=== PATIENT | male | born 1955 | race Caucasian/White ===

== ENCOUNTER → 2024-01-30 16:01 | Outpatient (REF) | payer OTHER, SELFPAY ==
[2024-01-30 11:57] LABS: Hematocrit 31.6 % (39.0-52.0); Hemoglobin 10.2 g/dL (13.0-18.0); Mean Corp Hgb Conc. 32.3 g/dL (33.0-37.0); Mean Corpuscular Hgb 30.6 pg (27.0-31.0); Mean Corpuscular Volume 94.9 fL (80.0-94.0); Mean Platelet Volume 10.2 fL (7.4-10.4); Platelet Count 322 10^3/uL (130-400); Red Blood Cell Count 3.33 10^6/uL (4.70-6.10); Red Cell Dist. Width 23.7 % (11.5-14.5); White Blood Cell Count 4.3 10^3/uL (4.8-10.8)
[2024-01-30 12:20] LABS: Absolute Neutrophils -Man Diff 2.3 10^3/uL (1.4-6.5); Anisocytosis Slight; Band Neutrophils 0 % (0-3); Lymphocytes 24 % (20-51); Monocytes 22 % (2-9); Normal RBC Morphology No; Platelets Checked Yes; Segmented Neutrophils 54 % (42-75)
[2024-01-30 12:21] LABS: Ovalocytes Slight; Total Cells Counted 100
== END ==
LOC: OIDL 16:01
PROVIDERS: ATTENDING PHYSICIAN Internal Medicine Hematology & Oncology
DX: C78.7 Secondary malignant neoplasm of liver and intrahepatic bile duct (principal)
CPT/HCPCS: 85025